=== PATIENT | male | born 2000 | race Asian ===

== ENCOUNTER 2022-04-24 15:54 | Emergency (ER) | payer OTHER ==
[~2022-04-24] VITALS: Ht 165.1 cm; Wt 56.4 kg
[2022-04-24 16:39] VITALS: BP 142/89
[2022-04-24 16:57] LABS: COVID AG,FIA SOURCE NASAL SWAB
[2022-04-24 17:21] LABS: INFLUENZA TYPE A NEGATIVE FOR TYPE A (NEGATIVE); INFLUENZA TYPE B NEGATIVE FOR TYPE B (NEGATIVE)
[2022-04-24] MEDS ORDERED: GUAIFDM PO ×2 (17:40→20:00)
[2022-04-24] MEDS ORDERED: IBUP-1554 PO ×2 (17:40→20:00)
[2022-04-24] MEDS ORDERED: ACET-2080 PO ×2 (17:40→20:00)
[2022-04-24] MEDS ORDERED: PSEU-191 PO ×2 (17:40→20:00)
== END 2022-04-24 18:14 | disposition home or self-care (01) ==
LOC: EMS 15:57
DX: J06.9 Acute upper respiratory infection, unspecified (principal); Z20.822 Contact with and (suspected) exposure to COVID-19
CPT/HCPCS: 87430; 87804; 99283